=== PATIENT | female | born 1995 | race African-American/Black ===

== ENCOUNTER 2021-05-19 15:46 | Emergency (ER) | payer OTHER ==
[~2021-05-19] VITALS: Ht 172.7 cm; Wt 150.0 kg
[2021-05-19] MEDS ORDERED: RX-ALBUTEROL INHALER 8.5 GM HFA (PROAIR) IH STA (16:02)
--- NOTE | 2021-05-19 16:13 | ED Respiratory ---
General Chief Complaint: Respiratory Problems Stated Complaint: ASTHMA ATTACK History of Present Illness Date Seen by Provider: May 19, 2021 Time Seen by Provider: 15:58 Initial Comments 26-year-old -[place] female from [place] reports that she has been having an asthma attack that began last evening. She is here visiting friends reports the animals are probably causing an issue. She will be moving to a hotel. She didn't have her inhaler. Last asthma attack 6-9 months ago. Doesn't use her inhaler regularly. Timing/Duration: yesterday Severity: moderate Prior Episodes/Possible Cause: allergen exposure Modifying Factors: Improves With Rest Associated Symptoms: chest pain/soreness; No cough, No facial pain, No fever/chills, No nasal congestion, No nasal drainage; shortness of breath, wheezing (SIMON OLIVEROS) Allergies and Home Medications Allergies Coded Allergies: No Known Drug Allergies (Unverified , 05/19/21) Patient Home Medication List Home Medication List Reviewed: Yes (SIMON OLIVEROS) Prednisone (Prednisone) 20 Mg Tab, 40 MG PO DAILY Prescribed by: SIMON OLIVEROS on 05/19/21 1637 Review of Systems Review of Systems Constitutional: no symptoms reported, see HPI Respiratory: see HPI, dyspnea on exertion, short of breath, wheezing (SIMON OLIVEROS) All Other Systems Reviewed Negative Unless Noted: Yes (SIMON OLIVEROS) Past Zybbeug-Smhvxv-Puwuav Hx Patient Social History Tobacco Use?: No Use of E-Cig and/or Vaping dev: No Substance use?: Yes Substance type: Marijuana Substance frequency: Couple times a week Alcohol Use?: Yes Alcohol Frequency: Several times a month Pt feels they are or have been: No (SIMON OLIVEROS) Immunizations Up To Date Influenza Vaccine Up-to-Date: No; Not Current (SIMON OLIVEROS) Family Medical History Reviewed Nursing Family Hx (SIMON OLIVEROS) Physical Exam Vital Signs - First Documented 05/19/21 15:56 Temp 36.7 Pulse 114 Resp 24 B/P (MAP) 126/83 (97) Pulse Ox 99 O2 Delivery Room Air (STEVE DON MD) Capillary Refill : (SIMON OLIVEROS) Height: '" Weight: lbs. oz. kg; BMI Method: General Appearance: WD/WN, no apparent distress HEENT: PERRL/EOMI, normal ENT inspection, TMs normal, pharynx normal Neck: non-tender, full range of motion, supple, normal inspection Respiratory: chest non-tender, no accessory muscle use, decreased breath sounds, wheezing Cardiovascular: normal peripheral pulses, regular rate, rhythm, tachycardia Gastrointestinal: normal bowel sounds, non tender, soft Neurologic/Psychiatric: no motor/sensory deficits, alert, normal mood/affect, oriented x 3 Skin: normal color, warm/dry (SIMON OLIVEROS) Progress/Results/Core Measures Suspected Sepsis SIRS Temperature: Pulse: Respiratory Rate: Blood Pressure / Mean: (SIMON OLIVEROS) Results/Orders Vital Signs/I&O 05/19/21 05/19/21 15:56 16:42 Temp 36.7 Pulse 114 101 Resp 24 20 B/P (MAP) 126/83 (97) 146/77 Pulse Ox 99 100 O2 Delivery Room Air Room Air (STEVE DON MD) Vital Signs/I&O Capillary Refill : (SIMON OLIVEROS) Progress Note : Time: 15:56 Progress Note Patient seen and evaluated, will give 2 to 4 puffs of Ventolin and reassess. 1620 patient reports less shortness of air, auscultation shows improved air mo vement and less wheezing. SaO2 remaining at 100% per room air. Patient reports feeling much better. 1640 continues to have improvement in symptoms and exam. Discharge instructions and return precautions reviewed with the patient. We will do prednisone for 3 days. She will begin taking Zyrtec once daily. Continue to use the inhaler as needed 2 to 4 puffs every 4 hours. Return precautions reviewed. (SIMON OLIVEROS) Departure Impression Primary Impression: Asthma Qualified Codes: J45.21 - Mild intermittent asthma with (acute) exacerbation Disposition: 01 HOME, SELF-CARE Condition: Stable Departure-Patient Inst. Decision time for Depature: 16:35 (SIMON OLIVEROS) Referrals: NO,LOCAL PHYSICIAN (PCP/Family) Primary Care Physician Patient Instructions: Asthma, Adult (DC) Add. Discharge Instructions: Take Zyrtec, 1 tablet once daily. Use the Ventolin inhaler 2 to 4 puffs every 4 hours as needed for wheezing or shortness of breath. Take prednisone as prescribed. Always travel with your albuterol inhaler. Return to the emergency department for difficulty breathing or new, urgent healthcare needs. All discharge instructions reviewed with patient and/or family. Voiced understanding. Scripts Prednisone (Prednisone) 20 Mg Tab 40 MG PO DAILY, #6 TAB 0 Refills Prov: SIMON OLIVEROS 05/19/21 ATTENDING PHYSICIAN NOTE: I was physically present as attending physician in the emergency department during the care of this patient, but I was not directly involved in the decision making or delivery of care for this patient. (STEVE DON MD) SIMON OLIVEROS May 19, 2021 16:13 STEVE DON MD May 19, 2021 18:45
[2021-05-19] MEDS ORDERED: PRD20T PO (16:37)
[2021-05-19 16:42] VITALS: BP 146/77
== END 2021-05-19 16:38 | disposition home or self-care (01) ==
LOC: ER 15:49
DX: J45.909 Unspecified asthma, uncomplicated (principal); R00.0 Tachycardia, unspecified
CPT/HCPCS: 99283